=== PATIENT | female | born 1970 | race Caucasian/White ===

== ENCOUNTER → 2018-06-02 08:48 | Outpatient (CLI) | payer BC ==
[~2018-06-02] VITALS: Ht 170.2 cm; Wt 121.1 kg
[~2018-06-02 08:48] MED LIST: ACETAMINOPHEN500 M1 PO; ATIVAN1 MG PO; IBUPROFEN800 MG PO; LEVSIN/ANASP0.125 MG PO; MACROBID100 MG PO; MIRAPEX1.5 MG PO; NEURONTIN600 MG PO; ZOLOFT100 MG PO
[2018-06-02 10:07] VITALS: Ht 170.2 cm; Wt 121.1 kg
== END | disposition home or self-care (01) ==
LOC: D.FANS 08:48
DX: E66.01 Morbid (severe) obesity due to excess calories (principal)

== ENCOUNTER 2018-06-12 08:13 | Emergency (ER) | payer BC ==
[~2018-06-12] VITALS: Ht 170.2 cm; Wt 119.5 kg
[2018-06-12 08:29] VITALS: Ht 170.2 cm; Wt 119.5 kg
[2018-06-12] MEDS ORDERED: ZOLOFT100 MG PO (08:33)
[2018-06-12] MEDS ORDERED: ATIVAN1 MG PO (08:33)
[2018-06-12] MEDS ORDERED: MIRAPEX1.5 MG PO (08:33)
[2018-06-12] MEDS ORDERED: NEURONTIN600 MG PO (08:33)
[2018-06-12 08:59] LABS: BASOPHILS 0.2 % (0-2); EOSINOPHILS 0.9 % (0-7); HEMATOCRIT 38.6 % (36.0-48.0); HEMOGLOBIN 12.6 g/dL (12-16); IMMATURE GRANULOCYTES 0.3 % (0-5); LYMPHOCYTES 20.4 % (15-50); MCH 28.3 pg (26.0-34.0); MCHC 32.6 g/dL (31.0-37.0); MCV 86.7 fL (80.0-100.0); MEAN PLATELET VOLUME 10.9 fL (7.4-10.4); MONOCYTES 8.2 % (2-11); PLATELET COUNT 327 10x3/uL (130-400); RBC 4.45 10x6/uL (4.00-5.40); RDW 13.4 % (11.5-14.5); WBC 9.2 10x3/uL (4.8-10.8)
[2018-06-12 09:16] LABS: ALBUMIN 3.2 g/dL (3.4-5.0); ALKALINE PHOSPHATASE 84 U/L (46-116); ALT (SGPT) 15 U/L (10-68); AMYLASE - SERUM 31 U/L (25-115); BILIRUBIN - TOTAL 0.52 mg/dL (0.2-1.3); CALC OSMOLALITY 273 mosm/kg (275-300); CALCIUM 8.7 mg/dL (8.5-10.1); CARBON DIOXIDE 25.6 mmol/L (21.0-32.0); CHLORIDE - SERUM 104 mmol/L (98-107); CREATININE - SERUM 0.7 mg/dL (0.6-1.3); GLUCOSE 98 mg/dL (74-106); LIPASE 82 U/L (73-393); POTASSIUM - SERUM 3.9 mmol/L (3.5-5.1); PROTEIN - SERUM 7.5 g/dL (6.4-8.2); SODIUM 138 mmol/L (136-145); TROPONIN-I < 0.017 ng/mL (0.000-0.060); UREA NITROGEN 8 mg/dL (7-18); eGFR NON AFRICAN AMERICAN > 90 mL/min (90-120)
[2018-06-12 10:47] LABS: APPEARANCE SL CLDY (CLEAR); BACTERIA MANY /hpf (NONE SEEN); BILIRUBIN NEGATIVE (NEGATIVE); COLOR YELLOW (YELLOW); EPITHELIAL CELLS 0-5 /hpf (0-5); GLUCOSE NEGATIVE (NEGATIVE); KETONE NEGATIVE (NEGATIVE); MUCUS <1+ /lpf (NONE SEEN); NITRITE NEGATIVE (NEGATIVE); PROTEIN NEGATIVE (NEGATIVE); UROBILINOGEN NORMAL (NORMAL); WHITE CELLS - URINE 0-5 /hpf (0-5)
[2018-06-12] MEDS ORDERED: MACROBID100 MG PO (12:36)
[2018-06-12] MEDS ORDERED: LEVSIN/ANASP0.125 MG PO (12:36)
[2018-06-12] MEDS ORDERED: IBUPROFEN800 MG PO (12:36)
[2018-06-12] MEDS ORDERED: ACETAMINOPHEN500 M1 PO (12:36)
[2018-06-12 13:40] VITALS: BP 121/88
== END 2018-06-12 13:41 | disposition home or self-care (01) ==
LOC: D.ER 08:13
PROVIDERS: Family Medicine
DX: R10.11 Right upper quadrant pain (principal); K82.9 Disease of gallbladder, unspecified

== ENCOUNTER → 2018-06-18 11:40 | Outpatient (CLI) | payer BC ==
[2018-06-12 08:29] VITALS: BMI 41.3
== END | disposition home or self-care (01) ==
LOC: D.NM 11:40
DX: R10.11 Right upper quadrant pain (principal)

== ENCOUNTER → 2019-05-07 08:58 | Outpatient (CLI) | payer BC ==
[2018-06-12 08:29] VITALS: BMI 41.3
== END | disposition home or self-care (01) ==
LOC: D.RAD 08:58
DX: K21.9 Gastro-esophageal reflux disease without esophagitis (principal)